=== PATIENT | female | born 1980 | race Two or more races ===

== ENCOUNTER 2016-07-24 20:18 | Emergency (ER) | payer OTHER ==
[~2016-07-24] VITALS: Ht 165.1 cm; Wt 175.5 kg
[2016-07-24] MEDS ORDERED: LORAZEPAM 1 MG TABLET. PO ONE (22:00)
[2016-07-24] MEDS ORDERED: IPRATRPIUM/ALBUTEROL 0.5/2.5MG 3 ML NEBU. NEB ONE (22:00)
[2016-07-24 22:29] VITALS: BP 158/74
[2016-07-24] MEDS ORDERED: PROAIR HFA8.5 GM INH (23:31)
[2016-07-24] MEDS ORDERED: LORA0.5T96 PO (23:31)
[2016-07-24] MEDS ORDERED: BENZ100C PO (23:31)
--- NOTE | 2016-07-24 23:32 | PHYS DOC ---
Past Medical History Past Medical History: Other Additional Past Medical Histor: BACK PAIN Past Surgical History: Other Additional Past Surgical Histo: BLOOD PATCH Alcohol Use: None Drug Use: None Adult General Chief Complaint Chief Complaint: ANXIETY/PANIC ATTACK HPI HPI 35-year-old female states she felt some mild numbness and feeling to her face and felt symptoms that are typical of her usual anxiety and panic attacks that she's had. She states she has a son at home that is giving her significant stress. Her son has history of ADHD and she is teary-eyed when she states she feels overwhelmed at home. She states she normally would be all to cope but that time for Tylenol home that she is used to. She has been previously prescribed Xanax for panic attacks. She additionally states she's had a cough that is productive for greenish type sputum. She feels she is wheezing but does not have an inhaler at home. She denies any significant shortness of breath. She said her saturating near 100% on room air in no significant distress. She denies any suicidal or homicidal thoughts. Review of Systems Review of Systems Constitutional: Denies fever or chills [] Eyes: Denies change in visual acuity, redness, or eye pain [] HENT: Denies nasal congestion or sore throat [] Respiratory: Denies cough or shortness of breath [] Cardiovascular: No additional information not addressed in HPI [] GI: Denies abdominal pain, nausea, vomiting, bloody stools or diarrhea [] : Denies dysuria or hematuria [] Musculoskeletal: Denies back pain or joint pain [] Integument: Denies rash or skin lesions [] Neurologic: Denies headache, focal weakness or sensory changes [] Endocrine: Denies polyuria or polydipsia [] Current Medications Current Medications Current Medications Medications (Trade) Dose Ordered Sig/Brian Start Time Stop Time Status Last Admin Dose Admin Albuterol/ Ipratropium (Duoneb) 3 ml 1X ONCE 07/24/16 22:00 07/24/16 22:01 DC 07/24/16 22:33 3 ML Lorazepam (Ativan) 0.5 mg 1X ONCE 07/24/16 22:00 07/24/16 22:01 DC 07/24/16 22:15 0.5 MG Allergies Allergies Allergies Coded Allergies Type Severity Reaction Last Updated Verified fluconazole Allergy Severe Anaphylaxis 11/08/13 No Physical Exam Physical Exam Constitutional: Well developed, well nourished, no acute distress, non-toxic appearance. [] HENT: Normocephalic, atraumatic, bilateral external ears normal, oropharynx moist, no oral exudates, nose normal. [] Eyes: PERRLA, EOMI, conjunctiva normal, no discharge. [] Neck: Normal range of motion, no tenderness, supple, no stridor. [] Cardiovascular:Heart rate regular rhythm, no murmur [] Lungs & Thorax: Expiratory wheezes bilaterally, no respiratory distress [] Abdomen: Bowel sounds normal, soft, no tenderness, no masses, no pulsatile masses. [] Skin: Warm, dry, no erythema, no rash. [] Back: No tenderness, no CVA tenderness. [] Extremities: No tenderness, no cyanosis, no clubbing, ROM intact, no edema. [] Neurologic: Alert and oriented X 3, normal motor function, normal sensory function, no focal deficits noted. [] Psychologic: Affect normal, judgement normal, mood anxious. [] Current Patient Data Vital Signs Vital Signs Date Time Temp Pulse Resp B/P Pulse Ox O2 Delivery O2 Flow Rate FiO2 07/24/16 22:33 98 Room Air 07/24/16 22:29 77 158/74 07/24/16 20:24 99.5 18 99.5 EKG EKG EKG as interpreted by me shows a sinus rhythm with rate of 70 bpm. This is a normal EKG. There are no signs of ischemia. Radiology/Procedures Radiology/Procedures [] Course & Med Decision Making Course & Med Decision Making Pertinent Labs and Imaging studies reviewed. (See chart for details) This 35-year-old female with ongoing anxiety was given a by mouth dose of Ativan and a DuoNeb treatment with significant relief of symptoms. I'll be providing her a course of bronchodilator therapy at home with a pro-air inhaler as well as Tessalon Perles for cough. I'll provide her a short course of Ativan. I discussed the need for her to follow closely with her primary care doctor for her ongoing anxiety type symptoms. I believe her cough to be related to bronchospasm and I told her to use her inhaler liberally every 4-6 hours until her cough resolves. I see no indication perform any laboratory workup or imaging at this time. Gton Disclaimer Gton Disclaimer This electronic medical record was generated, in whole or in part, using a voice recognition dictation system. Departure Departure Impression: Primary Impression: Anxiety Additional Impression: Bronchospasm Disposition: 01 HOME, SELF-CARE Admitting Physician: Other Condition: STABLE Referrals: NO PCP (PCP) Patient Instructions: Anxiety and Panic Attacks, [id number] Additional Instructions: Please follow up with your primary doctor in the next 2-3 days for your anxiety and cough. Use your inhaler as instructed. Take your anxiety medication as needed. Return to the ER if you develop any worsening of your symptoms. Scripts Benzonatate (Tessalon Perle)100 Mg [id number] Mg PO TID PRN COUGH #15 CAP Prov:SRAVANTHI LAY DO 07/24/16 Lorazepam (Ativan)0.5 Mg Tablet0.5 Mg PO BID PRN ANXIETY / AGITATION #8 TAB Prov:SRAVANTHI LAY DO 07/24/16 Albuterol Sulfate (Proair Hfa Inhaler)8.5 Gm Hfa.aer.ad1 Puff INH PRN Q6HRS PRN SHORTNESS OF BREATH #1 INHALER Ref 0 Prov:SRAVANTHI LAY DO 07/24/16 Problem Qualifiers SRAVANTHI LAY DO Jul 24, 2016 23:31
--- NOTE | 2016-07-24 23:38 | ACF ---
Admission Forms Criteria PSYCHIATRIC DISORDERS Clinical Indications for Inpatient Care (Place 'X' for any and all applicable criteria): Ongoing inpatient care may be needed for ANY ONE of the following(1)(2)(3)(4)(6) (7)(8): [ ]I. Danger to self or others not manageable at lower level of care. [ ]II. Grave disability (eg, inability to perform self care necessary at lower level of care) [ ]III. Agitation or inappropriate behavior interfering with care for primary condition (eg, attempting to discontinue lines or drains prematurely, unable to cooperate with respiratory care) [ ]IV. Severe disability or disorder indicated by ALL of the following: []a) Severe behavioral health disorder-related symptoms or condition indicated by ANY ONE of the following: [ ]i) Severe problem with cognition, memory, judgment, or impulse control [ ]ii) Severe clinical manifestations (eg, hallucinations, delusions, other acute psychotic symptoms, ismael, extreme agitation or anxiety) [ ]b) Patient management at lower level of care is not feasible until acute intervention or modification is initiated. Extended stay beyond goal length of stay for the primary condition may be indicated when ANY ONE of the following is present: (1)(2)(3)(4): [ ]a) Patient is a danger to self or others and not manageable at lower level of care. [ ]b) Behavior crisis management, including physical or chemical restraints, is required and is not available at a lower level of care. [ ]c) Behavioral symptoms (e.g., agitation, somnolence, inappropriate behavior) are present, and are not manageable at a lower level of care. [ ]d) Patient cannot understand follow-up treatment and crisis plan. [ ]e) Provider and supports are not sufficiently available at lower level of care. [ ]f) Patient cannot participate (e.g., verify absence of plan for harm) and is in needed of monitoring. The original [employer] content created by [employer] has been revised. The portions of the content which have been revised are identified through the use of italic text or in bold, and [facility] [employer] has neither reviewed nor approved the modified material. All other unmodified content is copyright [employer] [facility]. Please see references footnoted in the original [employer] [facility] edition 2016 HENRRY SERRANO Jul 24, 2016 23:38
--- NOTE | 2016-07-25 06:52 | EKG ---
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
== END 2016-07-24 23:47 | disposition home or self-care (01) ==
LOC: ER 20:18
DX: F41.9 Anxiety disorder, unspecified (principal); J98.01 Acute bronchospasm; F41.0 Panic disorder [episodic paroxysmal anxiety]; R20.0 Anesthesia of skin
CPT/HCPCS: 93005; 94250; 94640; 99284; J7620

== ENCOUNTER 2016-11-13 15:08 | Emergency (ER) | payer OTHER ==
[~2016-11-13 15:08] MED LIST: BENZ100C PO; LORA0.5T96 PO; PROAIR HFA8.5 GM INH
== END 2016-11-13 16:04 | disposition left against medical advice (07) ==
LOC: ER 15:08
DX: M54.9 Dorsalgia, unspecified (principal); Z53.21 Procedure and treatment not carried out due to patient leaving prior to being seen by health care provider

== ENCOUNTER 2017-05-16 12:01 | Emergency (ER) | payer OTHER | END 2017-05-16 13:46 | disposition home or self-care (01) | LOC: ER 13:46 | DX: S83.91XA Sprain of unspecified site of right knee, initial encounter (principal); S93.601A Unspecified sprain of right foot, initial encounter; S30.0XXA Contusion of lower back and pelvis, initial encounter; M17.11 Unilateral primary osteoarthritis, right knee; M47.816 Spondylosis without myelopathy or radiculopathy, lumbar region; W10.9XXA Fall (on) (from) unspecified stairs and steps, initial encounter; Z88.8 Allergy status to other drugs, medicaments and biological substances; Y93.89 Activity, other specified; Y92.89 Other specified places as the place of occurrence of the external cause; Y99.8 Other external cause status | CPT/HCPCS: 72100; 73564; 73630; 99284 ==

== ENCOUNTER 2018-01-04 22:17 | Emergency (ER) | payer SELFPAY ==
[~2018-01-04] VITALS: Ht 165.1 cm; Wt 181.4 kg
[~2018-01-04 22:17] MED LIST changes: +CYCL10TA2 PO; +DICL50TA4 PO
[2018-01-04 22:55] VITALS: BP 146/82
[2018-01-04 23:48] LABS: INFLUENZA A PATIENT NEGATIVE (NEGATIVE); INFLUENZA B PATIENT NEGATIVE (NEGATIVE)
[2018-01-05] MEDS ORDERED: DEXAMETHASONE SOD PHOS 20 MG/5 ML VIAL. PO ONE
[2018-01-05] MEDS ORDERED: ALBUTEROL SULFATE 2.5 MG/3 ML NEBU. NEB ONE (00:30)
[2018-01-05] MEDS ORDERED: BENZ100C PO (01:12)
[2018-01-05] MEDS ORDERED: AMOX1TAB61 PO (01:12)
[2018-01-05] MEDS ORDERED: PROAIR HFA8.5 GM INH (01:12)
--- NOTE | 2018-01-05 01:13 | PHYS DOC ---
Past Medical History Past Medical History: Other Additional Past Medical Histor: BACK PAIN Past Surgical History: Other Additional Past Surgical Histo: BLOOD PATCH Alcohol Use: None Drug Use: None Adult General Chief Complaint Chief Complaint: SORE THROAT HPI HPI Patient is a 37 year old male who presents to the emergency room with complaints of a sore throat, nasal congestion, productive cough with green sputum, wheezing, shortness of breath, fatigue, and body aches for the last 3 days. She denies any nausea, vomiting, diarrhea, abdominal pain, dysuria, or fever. States that her son has also been sick recently. Patient states that her last period began on 31 December and denies any chance of . Review of Systems Review of Systems Constitutional: Denies fever or chills [] Eyes: Denies change in visual acuity, redness, or eye pain [] HENT: reports nasal congestion and sore throat [] Respiratory: reports wheezing, productive cough with dark green sputum, and shortness of breath [] Cardiovascular: Denies chest pain GI: Denies abdominal pain, nausea, vomiting, or diarrhea [] Musculoskeletal: Denies back pain or joint pain [] Integument: Denies rash or skin lesions [] Neurologic: Denies headache, focal weakness or sensory changes [] All other systems were reviewed and found to be within normal limits, except as documented in this note. Current Medications Current Medications Current Medications Medications (Trade) Dose Ordered Sig/Brian Start Time Stop Time Status Last Admin Dose Admin Albuterol Sulfate (Ventolin Neb Soln) 2.5 mg 1X ONCE 01/05/18 00:30 01/05/18 00:31 DC 01/05/18 00:35 2.5 MG Dexamethasone Sodium Phosphate (Decadron) 10 mg 1X ONCE 01/05/18 00:00 01/05/18 00:01 DC 01/05/18 00:04 10 MG Allergies Allergies Allergies Coded Allergies Type Severity Reaction Last Updated Verified fluconazole Allergy Severe Anaphylaxis 11/08/13 No Physical Exam Physical Exam Constitutional: Well developed, well nourished, no acute distress, non-toxic appearance, obese [] HENT: Normocephalic, atraumatic, bilateral external ears normal, oropharynx moist, no oral exudates, nose normal. [] Eyes: PERRLA, conjunctiva normal, no discharge. [] Neck: Normal range of motion, no tenderness, supple, no stridor. [] Cardiovascular:Heart rate regular rhythm, no murmur [] Lungs & Thorax: Bilateral breath sounds coarse with scattered wheezes bilat Skin: Warm, dry, no erythema, no rash. [] Extremities: No cyanosis, ROM intact, no edema. [] Neurologic: Alert and oriented X 3, normal motor function, normal sensory function, no focal deficits noted. [] Psychologic: Affect normal, judgement normal, mood normal. [] Current Patient Data Vital Signs Vital Signs Date Time Temp Pulse Resp B/P (MAP) Pulse Ox O2 Delivery O2 Flow Rate FiO2 01/05/18 00:37 98 Room Air 01/04/18 22:55 98.5 82 20 146/82 (103) 98.5 Lab Values Laboratory Tests Test 01/04/18 23:20 Influenza Type A Antigen Negative (NEGATIVE) Influenza Type B Antigen Negative (NEGATIVE) EKG EKG [] Radiology/Procedures Radiology/Procedures CXR neg read by Dr Panda[] Course & Med Decision Making Course & Med Decision Making Pertinent Labs and Imaging studies reviewed. (See chart for details) [] Dragon Disclaimer Dragon Disclaimer This electronic medical record was generated, in whole or in part, using a voice recognition dictation system. Departure Departure Impression: Primary Impression: URI (upper respiratory infection) Additional Impression: Bronchitis Disposition: 01 HOME, SELF-CARE Condition: STABLE Referrals: UNKNOWN PCP NAME (PCP) Patient Instructions: Acute Bronchitis, [id number], Upper Respiratory Infection, Adult, Utrc-hz-Eagh Additional Instructions: Fill prescription(s) and use as directed. Cool mist humidifier in room at bedtime. Tylenol or ibuprofen prn pain/fever. Increase clear fluids. Avoid triggers such as smoke, fragrance, dust, and pollen. Follow-up with your primary care doctor next week, Return to the ER if your symptoms worsen. Scripts Albuterol Sulfate (PROAIR HFA INHALER) 8.5 Gm Hfa.aer.ad 1-2 PUFF INH PRN Q6HRS PRN for SHORTNESS OF BREATH, #1 INHALER 0 Refills Prov: KATYA COOPER JOURNEYMAN PRESS OPERATOR 01/05/18 Benzonatate (TESSALON PERLE) 100 Mg Capsule 1 CAP PO TID, #21 CAP Prov: KATYA COOPER JOURNEYMAN PRESS OPERATOR 01/05/18 Amoxicillin/Potassium Clav (AUGMENTIN 875-125 TABLET) 1 Each Tablet 1 TAB PO BID, #14 TAB Prov: KATYA COOPER APRN 01/05/18 Attending Signature Attending Signature I have reviewed the PA/INSURANCE MANAGER's note and plan of care. I was available for consultation as needed during the patient's visit in the emergency department. I agree with the clinical impression, plan, and disposition. Problem Qualifiers Primary Impression: URI (upper respiratory infection) URI type: unspecified URI Qualified Codes: J06.9 - Acute upper respiratory infection, unspecified KATYA COOPER APRN Jan 05, 2018 01:13 DARREN PANDA DO Jan 05, 2018 04:38
--- NOTE | 2018-01-05 07:13 | RAD ---
EXAM: Chest, 2 views. HISTORY: Cough. COMPARISON: None. FINDINGS: Frontal and lateral views of the chest are obtained. There is no infiltrate, pleural effusion or pneumothorax. The heart is normal in size. IMPRESSION: No acute pulmonary finding. Electronically signed by: Reba Santiago MD (01/05/2018 7:10 AM) [facility]
== END 2018-01-05 01:19 | disposition home or self-care (01) ==
LOC: ER 22:17
DX: J40 Bronchitis, not specified as acute or chronic (principal); J06.9 Acute upper respiratory infection, unspecified; Z88.8 Allergy status to other drugs, medicaments and biological substances
CPT/HCPCS: 71046; 87070; 87804; 87880; 94640; 99285; J1100; J7613

== ENCOUNTER 2018-05-21 02:47 | Emergency (ER) | payer OTHER ==
[~2018-05-21] VITALS: Ht 162.6 cm; Wt 181.4 kg
[~2018-05-21 02:47] MED LIST changes: +ALBU2.5V8 INH; +AMOX1TAB61 PO; -PROAIR HFA8.5 GM INH
[2018-05-21 02:55] VITALS: BP 155/85
[2018-05-21] MEDS ORDERED: KETOROLAC 60 MG/2 ML VIAL. IM ONE (03:15)
[2018-05-21] MEDS ORDERED: ORPH100T PO (03:25)
[2018-05-21] MEDS ORDERED: DICL50TA4 PO (03:25)
--- NOTE | 2018-05-21 03:26 | PHYS DOC ---
Past Medical History Past Medical History: Other Additional Past Medical Histor: BACK PAIN Past Surgical History: Other Additional Past Surgical Histo: BLOOD PATCH Alcohol Use: None Drug Use: None Adult General Chief Complaint Chief Complaint: BACK PAIN - NO INJURY HPI HPI Patient is a 37-year-old female who presents with complaint of exacerbation of lower back pain. Patient states that she has a history of chronic back pain. She states that recently her autistic son stayed home from school due to an intestinal infection and she was having to lift him a lot. She states that since that time she has had pain in her mid to lower back region. She states the pain radiates up her back into her shoulder blade. She denies any loss of bowel or bladder control. She denies any urinary discomfort. She rates the pain at a 7 out of 10. Review of Systems Review of Systems Constitutional: Denies fever or chills [] Respiratory: Denies cough or shortness of breath [] Cardiovascular: No additional information not addressed in HPI [] : Denies dysuria or hematuria [] Musculoskeletal: Complains of lower back pain [] Integument: Denies rash or skin lesions [] Neurologic: Denies headache, focal weakness or sensory changes [] Current Medications Current Medications Current Medications Medications (Trade) Dose Ordered Sig/Brian Start Time Stop Time Status Last Admin Dose Admin Ketorolac Tromethamine (Toradol Im) 60 mg 1X ONCE 05/21/18 03:15 05/21/18 03:16 DC Allergies Allergies Allergies Coded Allergies Type Severity Reaction Last Updated Verified fluconazole Allergy Severe Anaphylaxis 11/08/13 No Physical Exam Physical Exam Constitutional: Well developed, well nourished, no acute distress, non-toxic appearance. [] Neck: Normal range of motion, no tenderness, supple, no stridor. [] Cardiovascular: Regular rate and rhythm [] Lungs & Thorax: Bilateral breath sounds clear to auscultation [] Back: There is tenderness to palpation in the left lower thoracic and thoraco lumbar junction without palpable spasm. [] Neurologic: Alert and oriented X 3. [] EKG EKG [] Radiology/Procedures Radiology/Procedures [] Course & Med Decision Making Course & Med Decision Making Pertinent Labs and Imaging studies reviewed. (See chart for details) [] Dragon Disclaimer Dragon Disclaimer This electronic medical record was generated, in whole or in part, using a voice recognition dictation system. Departure Departure Impression: Primary Impression: Chronic back pain Disposition: HOME, SELF-CARE Condition: STABLE Referrals: UNKNOWN PCP NAME (PCP) Patient Instructions: Back Pain, Adult, Chronic Back Pain Scripts Diclofenac Sodium (DICLOFENAC SODIUM) 50 Mg Tablet.dr 1 TAB PO BID PRN for PAIN, #20 TAB Prov: MARCO HAMILTON Jr. DO 05/21/18 Orphenadrine Citrate (ORPHENADRINE CITRATE) 100 Mg Tablet.er 1 TAB PO BID PRN for MUSCLE SPASMS, #14 TAB Prov: MARCO HAMILTON Jr. DO 05/21/18 Problem Qualifiers Primary Impression: Chronic back pain Back pain location: back pain in unspecified location Back pain laterality: left Qualified Codes: M54.9 - Dorsalgia, unspecified; G89.29 - Other chronic pain MARCO HAMILTON Jr. DO May 21, 2018 03:26
== END 2018-05-21 04:00 | disposition home or self-care (01) ==
LOC: ER 02:47
DX: G89.29 Other chronic pain (principal); M54.5 Low back pain; Z88.8 Allergy status to other drugs, medicaments and biological substances
CPT/HCPCS: 96372; 99283; J1885

== ENCOUNTER 2018-06-03 22:11 | Emergency (ER) | payer OTHER ==
[~2018-06-03] VITALS: Ht 162.6 cm; Wt 188.2 kg
[~2018-06-03 22:11] MED LIST changes: +ORPH100T PO
[2018-06-03] MEDS ORDERED: IV NORMAL SALINE 1000ML BAG 1,000 ML IV ONE (22:30)
[2018-06-03] MEDS ORDERED: ONDANSETRON PF 4 MG/2 ML VIAL. IV ONE (22:30)
[2018-06-03] MEDS ORDERED: MORPHINE SULFATE 4 MG/ML VIAL. IV ONE (22:30)
[2018-06-03] MEDS ORDERED: IPRATRPIUM/ALBUTEROL 0.5/2.5MG 3 ML NEBU. NEB ONE (23:00)
--- NOTE | 2018-06-03 23:03 | RAD ---
AP portable chest radiograph 06/03/2018 Clinical History: Shortness of breath. An AP erect portable digital radiograph of the chest was obtained. Comparison study is dated 01/05/2018. The cardiac and mediastinal silhouettes are within normal limits in size and configuration. No acute pulmonary infiltrate is seen. No pleural effusion or pneumothorax is noted. The osseous structures are grossly intact. Impression: No acute abnormality is seen. Electronically signed by: Ismael Mcnamara MD (06/03/2018 11:00 PM) [facility]
[2018-06-03 23:21] LABS: BASE EXCESS ABG -3 mmol/L (-3-3); HCO3 ABG 22 mmol/L (21-28); PCO2 ABG 36 mmHg (35-46); PO2 ABG 70 mmHg (75-108); SAT O2 ABG 94 % (92-99)
[2018-06-03 23:22] LABS: FIO2 ABG 21
[2018-06-03 23:24] LABS: BASO % 1 % (0-3); EOS % 1 % (0-3); HEMATOCRIT 43.4 % (36.0-47.0); HEMOGLOBIN 14.6 g/dL (12.0-15.5); LYMPH # 1.4 x10^3/uL (1.0-4.8); LYMPH % 32 % (24-48); MEAN CORPUSCULAR HEMOGLOBIN 28 pg (25-35); MEAN CORPUSCULAR HGB CONC 34 g/dL (31-37); MEAN CORPUSCULAR VOLUME 84 fL (79-100); MONO # 0.6 x10^3/uL (0.0-1.1); MONO % 13 % (0-9); NEUT # 2.4 x10^3uL (1.8-7.7); NEUT % 54 % (31-73); PLATELET COUNT 207 x10^3/uL (140-400); RED CELL DISTRIBUTION WIDTH 14.4 % (11.5-14.5); WHITE BLOOD COUNT 4.5 x10^3/uL (4.0-11.0)
[2018-06-04 00:02] LABS: CALCIUM 8.6 mg/dL (8.5-10.1); CREATININE 0.8 mg/dL (0.6-1.0); GFR 79.9; POTASSIUM 3.3 mmol/L (3.5-5.1)
[2018-06-04 00:07] LABS: ALBUMIN 2.8 g/dL (3.4-5.0); ALBUMIN/GLOBULIN RATIO 0.7 (1.0-1.7); TOTAL BILIRUBIN 0.3 mg/dL (0.2-1.0); TOTAL PROTEIN 7.1 g/dL (6.4-8.2)
[2018-06-04 00:20] LABS: PREG TEST PT QUAL NEGATIVE (NEG)
[2018-06-04 00:23] LABS: INFLUENZA A PATIENT NEGATIVE (NEGATIVE); INFLUENZA B PATIENT NEGATIVE (NEGATIVE)
[2018-06-04 00:40] LABS: BILIRUBIN,URINE SMALL (NEG); CLARITY,URINE CLOUDY; COLOR,URINE AMBER; NITRITE,URINE NEGATIVE (NEG); PROTEIN,URINE 30 mg/dL (NEG-TRACE)
[2018-06-04] MEDS ORDERED: IV NORMAL SALINE 1000ML BAG 1,000 ML IV ONE (01:15)
[2018-06-04 01:20] LABS: BACTERIA,URINE MODERATE /HPF (0-FEW); HYALINE CASTS, URINE MODERATE /HPF; RBC,URINE OCC /HPF (0-2); SQUAMOUS EPITHELIAL CELL,UR MANY /LPF
[2018-06-04] MEDS ORDERED: MORPHINE SULFATE 4 MG/ML VIAL. IV ONE (02:00)
[2018-06-04] MEDS ORDERED: CEPH-264 PO (02:18)
[2018-06-04] MEDS ORDERED: CODE10LI PO (02:18)
[2018-06-04] MEDS ORDERED: cefTRIAXone IV Push 1 GM VIAL. IVP ONE (02:30)
[2018-06-04 02:55] VITALS: BP 109/58
--- NOTE | 2018-06-04 06:37 | EKG ---
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
--- NOTE | 2018-06-07 21:32 | PHYS DOC ---
Past Medical History Past Medical History: Asthma, Other Additional Past Medical Histor: BACK PAIN, MORBID OBESITY Past Surgical History: Other Additional Past Surgical Histo: BLOOD PATCH Alcohol Use: None Drug Use: None Adult General Chief Complaint Chief Complaint: SHORTNESS OF BREATH HPI HPI Patient is a 37 year old female presents with persistent cough, diarrhea, sore throat and occasional shortness of breath. History of asthma. Fever chills, wheezing. Also reports urinary frequency urgency. No abdominal pain, no vomiting , flank pain history of kidney stone.[] Review of Systems Review of Systems Review symptoms as per history of present illness. All other review symptoms are negative. All other systems were reviewed and found to be within normal limits, except as documented in this note. Current Medications Current Medications Current Medications Medications (Trade) Dose Ordered Sig/Brian Start Time Stop Time Status Last Admin Dose Admin Albuterol/ Ipratropium (Duoneb) 3 ml 1X ONCE 06/03/18 23:00 06/03/18 23:01 DC 06/03/18 23:08 3 ML Ceftriaxone Sodium (Rocephin) 1 gm 1X ONCE 06/04/18 02:30 06/04/18 02:31 DC 06/04/18 03:12 1 GM Morphine Sulfate (Morphine Sulfate) 2 mg 1X ONCE 06/04/18 02:00 06/04/18 02:01 DC 06/04/18 01:50 2 MG Ondansetron HCl (Zofran) 4 mg 1X ONCE 06/03/18 22:30 06/03/18 22:32 DC 06/03/18 23:25 4 MG Sodium Chloride 1,000 ml @ 1,000 mls/hr 1X ONCE 06/04/18 01:15 06/04/18 02:14 DC 06/04/18 01:50 1,000 MLS/HR Allergies Allergies Allergies Coded Allergies Type Severity Reaction Last Updated Verified fluconazole Allergy Severe Anaphylaxis 11/08/13 No Physical Exam Physical Exam Constitutional: Well developed, well nourished, no acute distress, non-toxic appearance. [] HENT: Normocephalic, atraumatic, bilateral external ears normal, oropharynx moist, no oral exudates, nose normal. [] Eyes: PERRLA, EOMI, conjunctiva normal, no discharge. [] Neck: Normal range of motion, no tenderness, supple, no stridor. [] Cardiovascular:Heart rate regular rhythm, no murmur [] Lungs & Thorax: Bilateral breath sounds clear to auscultation [] Abdomen: Bowel sounds normal, soft, no tenderness, no masses, no pulsatile masses. [] Skin: Warm, dry, no erythema, no rash. [] Back: No tenderness, no CVA tenderness. [] Extremities: No tenderness, no cyanosis, no clubbing, ROM intact, no edema. [] Neurologic: Alert and oriented X 3, normal motor function, normal sensory function, no focal deficits noted. [] Psychologic: Affect normal, judgement normal, mood normal. [] Current Patient Data Vital Signs Vital Signs Date Time Temp Pulse Resp B/P (MAP) Pulse Ox O2 Delivery O2 Flow Rate FiO2 06/04/18 02:55 68 109/58 (75) 98 Room Air 06/04/18 01:50 22 06/03/18 22:15 99.6 99.6 Lab Values Laboratory Tests Test 06/03/18 23:07 06/03/18 23:10 06/03/18 23:24 06/03/18 23:34 O2 Saturation 94 % (92-99) Arterial Blood pH 7.40 (7.35-7.45) Arterial Blood pCO2 at Patient Temp 36 mmHg (35-46) Arterial Blood pO2 at Patient Temp 70 mmHg (75-108) L Arterial Blood HCO3 22 mmol/L (21-28) Arterial Blood Base Excess -3 mmol/L (-3-3) FiO2 21 White Blood Count 4.5 x10^3/uL (4.0-11.0) Red Blood Count 5.20 x10^6/uL (3.50-5.40) Hemoglobin 14.6 g/dL (12.0-15.5) Hematocrit 43.4 % (36.0-47.0) Mean Corpuscular Volume 84 fL (79-100) Mean Corpuscular Hemoglobin 28 pg (25-35) Mean Corpuscular Hemoglobin Concent 34 g/dL (31-37) Red Cell Distribution Width 14.4 % (11.5-14.5) Platelet Count 207 x10^3/uL (140-400) Neutrophils (%) (Auto) 54 % (31-73) Lymphocytes (%) (Auto) 32 % (24-48) Monocytes (%) (Auto) 13 % (0-9) H Eosinophils (%) (Auto) 1 % (0-3) Basophils (%) (Auto) 1 % (0-3) Neutrophils # (Auto) 2.4 x10^3uL (1.8-7.7) Lymphocytes # (Auto) 1.4 x10^3/uL (1.0-4.8) Monocytes # (Auto) 0.6 x10^3/uL (0.0-1.1) Eosinophils # (Auto) 0.0 x10^3/uL (0.0-0.7) Basophils # (Auto) 0.0 x10^3/uL (0.0-0.2) Lactic Acid Level 1.2 mmol/L (0.4-2.0) POC Troponin I 0.00 ng/ml (<0.08) Influenza Type A Antigen Negative (NEGATIVE) Influenza Type B Antigen Negative (NEGATIVE) Test 06/03/18 23:40 06/04/18 00:15 06/04/18 00:22 Sodium Level 141 mmol/L (136-145) Potassium Level 3.3 mmol/L (3.5-5.1) L Chloride Level 104 mmol/L (98-107) Carbon Dioxide Level 25 mmol/L (21-32) Anion Gap 12 (6-14) Blood Urea Nitrogen 13 mg/dL (7-20) Creatinine 0.8 mg/dL (0.6-1.0) Estimated GFR (Cockcroft-Gault) 79.9 BUN/Creatinine Ratio 16 (6-20) Glucose Level 120 mg/dL (70-99) H Calcium Level 8.6 mg/dL (8.5-10.1) Total Bilirubin 0.3 mg/dL (0.2-1.0) Aspartate Amino Transferase (AST) 24 U/L (15-37) Alanine Aminotransferase (ALT) 31 U/L (14-59) Alkaline Phosphatase 83 U/L (46-116) NC-Ejv-I-Type Natriuretic Peptide 37 pg/mL (0-124) Total Protein 7.1 g/dL (6.4-8.2) Albumin 2.8 g/dL (3.4-5.0) L Albumin/Globulin Ratio 0.7 (1.0-1.7) L Serum Test, Qualitative Negative (NEG) Urine Collection Type Unknown Urine Color Elle Urine Clarity Cloudy Urine pH 6.0 Urine Specific [place] >=1.030 Urine Protein 30 mg/dL (NEG-TRACE) Urine Glucose (UA) Negative mg/dL (NEG) Urine Ketones (Stick) Trace mg/dL (NEG) Urine Blood Large (NEG) Urine Nitrite Negative (NEG) Urine Bilirubin Small (NEG) Urine Urobilinogen Dipstick 1.0 mg/dL (0.2 mg/dL) Urine Leukocyte Esterase Small (NEG) Urine RBC Occ /HPF (0-2) Urine WBC 1-4 /HPF (0-4) Urine Squamous Epithelial Cells Many /LPF Urine Bacteria Moderate /HPF (0-FEW) Urine Hyaline Casts Moderate /HPF POC Urine HCG, Qualitative Hcg negative (Negative) Laboratory Tests 06/03/18 23:10 Laboratory Tests 06/03/18 23:40 Microbiology 06/04/18 Urine Culture - Final, Complete 06/04/18 Urine Culture Result 1 ([place]) - Final, Complete EKG EKG [] Radiology/Procedures Radiology/Procedures [] Course & Med Decision Making Course & Med Decision Making Pertinent Labs and Imaging studies reviewed. (See chart for details) [Symptoms significantly improved with treatment.] Dragon Disclaimer Dragon Disclaimer This electronic medical record was generated, in whole or in part, using a voice recognition dictation system. Departure Departure Impression: Primary Impression: Bronchitis Additional Impression: Urinary tract infection Disposition: 01 HOME, SELF-CARE Condition: GOOD Patient Instructions: Bronchitis, Urql-of-Jghn, Urinary Tract Infection, Easy- to-Read Additional Instructions: Please increase fluids and take newly prescribed medications as directed. Follow -up with your PCP in 2-3 days for reevaluation. Return to the ED if new or worsening symptoms. Scripts Codeine Phosphate/Guaifenesin (Guaifen-Codeine 200-20 mg/10Ml) 10 Ml Liquid 10 ML PO Q8HRS, #120 LIQUID Prov: GLENDY ALEXANDER DO 06/04/18 Cephalexin (KEFLEX) 500 Mg Capsule 1 CAP PO TID, #21 CAP Prov: GLENDY ALEXANDER DO 06/04/18 Problem Qualifiers GLENDY ALEXANDER DO Jun 07, 2018 21:32
== END 2018-06-04 03:18 | disposition home or self-care (01) ==
LOC: ER 22:11
DX: J40 Bronchitis, not specified as acute or chronic (principal); N39.0 Urinary tract infection, site not specified; E66.01 Morbid (severe) obesity due to excess calories; Z68.45 Body mass index [BMI] 70 or greater, adult
CPT/HCPCS: 36415; 36600; 71045; 80053; 81001; 81025; 82805; 83605; 83880; 84484; 84703; 85025; 87086; 87804; 93005; 94640; 96361; 96374; 96375; 96376; 99284; J0696; J2270; J2405; J7030; J7620; 99283

== ENCOUNTER 2018-12-25 11:56 | Emergency (ER) | payer MEDICAID, OTHER ==
[~2018-12-25] VITALS: Ht 165.1 cm; Wt 190.5 kg
[~2018-12-25 11:56] MED LIST changes: +CEPH-264 PO; +CODE10LI PO
--- NOTE | 2018-12-25 13:41 | PHYS DOC ---
Past Medical History Past Medical History: Asthma, Other Additional Past Medical Histor: BACK PAIN, MORBID OBESITY Past Surgical History: Other Additional Past Surgical Histo: BLOOD PATCH Alcohol Use: None Drug Use: None Adult General Chief Complaint Chief Complaint: DIZZY/LIGHT HEADED [facility] HPI Patient is a 38 year old female who presents with complaining of dizziness. Patient complaining of intermittent episodes of dizziness for the last 2 weeks that usually happen after eating for the last for several hours. Patient states the dizziness is happening with sitting and standing position and associated with headache and sometimes nausea without focal neuro deficit. She does not have history of hypertension but is last days her blood pressure was 160s and 170s and she had headache and nausea and decided to come to emergency room because of elevation of blood pressure. Patient denies any medical problem or taking any medication. Review of Systems Review of Systems Constitutional: Denies fever or chills [] Eyes: Denies change in visual acuity, redness, or eye pain [] HENT: Denies nasal congestion or sore throat [] Respiratory: Denies cough or shortness of breath [] Cardiovascular: No additional information not addressed in HPI [] GI: Denies abdominal pain, vomiting, bloody stools or diarrhea [] : Denies dysuria or hematuria [] Musculoskeletal: Denies back pain or joint pain [] Integument: Denies rash or skin lesions [] Neurologic: Reports dizziness and headache, denies focal weakness or sensory changes [] Endocrine: Denies polyuria or polydipsia [] All other systems were reviewed and found to be within normal limits, except as documented in this note. Allergies Allergies Allergies Coded Allergies Type Severity Reaction Last Updated Verified fluconazole Allergy Severe Anaphylaxis 11/08/13 No Physical Exam Physical Exam Constitutional: Well developed, well nourished, mild distress, non-toxic appearance, morbidly obese. [] HENT: Normocephalic, atraumatic. Eyes: PERRLA, EOMI, conjunctiva normal, no discharge. [] Neck: Normal range of motion, no tenderness, supple, no stridor. [] Cardiovascular:Heart rate regular rhythm, no murmur [] Lungs & Thorax: Bilateral breath sounds clear to auscultation [] Abdomen: Bowel sounds normal, soft, no tenderness, no masses, no pulsatile masses. [] Skin: Warm, dry, no erythema, no rash. [] Back: No tenderness, no CVA tenderness. [] Extremities: No tenderness, no cyanosis, no clubbing, ROM intact, no edema. [] Neurologic: Alert and oriented X 3, no focal deficits noted. [] Psychologic: Affect anxious, judgement normal, mood normal. [] Current Patient Data Vital Signs Vital Signs Date Time Temp Pulse Resp B/P (MAP) Pulse Ox O2 Delivery O2 Flow Rate FiO2 12/25/18 13:15 97.5 65 18 144/68 (93) 100 Room Air 97.5 Lab Values Laboratory Tests Test 12/25/18 13:15 12/25/18 13:35 12/25/18 13:58 12/25/18 14:01 Glucose (Fingerstick) 117 mg/dL (70-99) H White Blood Count 7.0 x10^3/uL (4.0-11.0) Red Blood Count 4.71 x10^6/uL (3.50-5.40) Hemoglobin 13.4 g/dL (12.0-15.5) Hematocrit 40.1 % (36.0-47.0) Mean Corpuscular Volume 85 fL (79-100) Mean Corpuscular Hemoglobin 29 pg (25-35) Mean Corpuscular Hemoglobin Concent 34 g/dL (31-37) Red Cell Distribution Width 14.2 % (11.5-14.5) Platelet Count 248 x10^3/uL (140-400) Neutrophils (%) (Auto) 63 % (31-73) Lymphocytes (%) (Auto) 27 % (24-48) Monocytes (%) (Auto) 8 % (0-9) Eosinophils (%) (Auto) 1 % (0-3) Basophils (%) (Auto) 1 % (0-3) Neutrophils # (Auto) 4.4 x10^3/uL (1.8-7.7) Lymphocytes # (Auto) 1.9 x10^3/uL (1.0-4.8) Monocytes # (Auto) 0.6 x10^3/uL (0.0-1.1) Eosinophils # (Auto) 0.1 x10^3/uL (0.0-0.7) Basophils # (Auto) 0.1 x10^3/uL (0.0-0.2) Prothrombin Time 12.9 SEC (11.7-14.0) Prothrombin Time INR 1.0 (0.8-1.1) D-Dimer (Lillian) 0.66 ug/mlFEU (0.00-0.50) H Sodium Level 142 mmol/L (136-145) Potassium Level 4.1 mmol/L (3.5-5.1) Chloride Level 107 mmol/L (98-107) Carbon Dioxide Level 27 mmol/L (21-32) Anion Gap 8 (6-14) Blood Urea Nitrogen 14 mg/dL (7-20) Creatinine 0.9 mg/dL (0.6-1.0) Estimated GFR (Cockcroft-Gault) 69.3 BUN/Creatinine Ratio 16 (6-20) Glucose Level 111 mg/dL (70-99) H Calcium Level 8.8 mg/dL (8.5-10.1) Magnesium Level 1.9 mg/dL (1.8-2.4) Total Bilirubin 0.2 mg/dL (0.2-1.0) Aspartate Amino Transferase (AST) 16 U/L (15-37) Alanine Aminotransferase (ALT) 17 U/L (14-59) Alkaline Phosphatase 81 U/L (46-116) Creatine Kinase 174 U/L (26-192) Troponin I Quantitative < 0.017 ng/mL (0.000-0.055) CT-Zyj-D-Type Natriuretic Peptide 109 pg/mL (0-124) Total Protein 6.8 g/dL (6.4-8.2) Albumin 2.9 g/dL (3.4-5.0) L Albumin/Globulin Ratio 0.7 (1.0-1.7) L Lipase 138 U/L (73-393) Urine Collection Type Unknown Urine Color Yellow Urine Clarity Clear Urine pH 6.0 Urine Specific [place] 1.025 Urine Protein Negative mg/dL (NEG-TRACE) Urine Glucose (UA) Negative mg/dL (NEG) Urine Ketones (Stick) Negative mg/dL (NEG) Urine Blood Small (NEG) Urine Nitrite Negative (NEG) Urine Bilirubin Negative (NEG) Urine Urobilinogen Dipstick 0.2 mg/dL (0.2 mg/dL) Urine Leukocyte Esterase Negative (NEG) Urine RBC 3-5 /HPF (0-2) Urine WBC Rare /HPF (0-4) Urine Squamous Epithelial Cells Few /LPF Urine Bacteria Few /HPF (0-FEW) Urine Mucus Slight /LPF Urine Opiates Screen Neg (NEG) Urine Methadone Screen Neg (NEG) Urine Barbiturates Neg (NEG) Urine Phencyclidine Screen Neg (NEG) Urine Amphetamine/Methamphetamine Neg (NEG) Urine Benzodiazepines Screen Neg (NEG) Urine Cocaine Screen Neg (NEG) Urine Cannabinoids Screen Pos (NEG) Urine Ethyl Alcohol Neg (NEG) POC Urine HCG, Qualitative Hcg negative (Negative) Laboratory Tests 12/25/18 13:35 Laboratory Tests 12/25/18 13:35 EKG EKG EKG interpreted by me. EKG at 1312 showed normal sinus rhythm at rate of 77, normal MT and QT intervals, no acute ST and T-wave elevation.[] Radiology/Procedures Radiology/Procedures [][facility] [address] [place] [address] IMAGING REPORT Signed PATIENT: KIMBER BALDWIN ACCOUNT: [id number] : 1980 LOCATION: ER AGE: 38 SEX: F EXAM STATUS: REG ER ORD. PHYSICIAN: MAYLIN SULLIVAN MD REASON: nausea after eating PROCEDURE: ABDOMEN LTD ABDOMEN LTD History: Nausea. Comparison: None. Technique: Transabdominal ultrasound images are obtained of the right upper quadrant. Findings: Visualized pancreas is not well seen due to overlying bowel gas. Liver is increased in echogenicity. Right hepatic lobe measures 18 cm. Portal flow is hepatopedal. Gallbladder not well seen due to overlying bowel gas and patient body habitus. Difficult evaluation of the gallbladder may be due to contracted state or wall echo shadow sign. Common bile duct caliber is normal measuring 8.9 mm in diameter. The right kidney measures 10.1 x 6.5 x 5.3 cm in length and is without evidence of obstruction or stone. IVC is not well seen due to overlying bowel gas. IMPRESSION: 1. Evaluation of the gallbladder is degraded and findings may relate to wall echo shadow sign due to cholelithiasis versus contracted gallbladder. Further evaluation with MRI/MRCP or HIDA scan can better evaluate. 2. Mildly dilated common bile duct. 3. Hepatomegaly with steatosis. Electronically signed by: Jas Ibrahim DO (12/25/2018 2:42 PM) [id number] DICTATED and SIGNED BY: JAS IBRAHIM DO DATE: 12/25/[address] [address] IMAGING REPORT Signed PATIENT: KIMBER BALDWIN ACCOUNT: [id number] : 1980 LOCATION: ER AGE: 38 SEX: F EXAM STATUS: REG ER ORD. PHYSICIAN: MAYLIN SULLIVAN MD REASON: dizziness PROCEDURE: PORTABLE CHEST 1V EXAM: CHEST 1 VIEW History: Dizziness COMPARISON: 06/03/2018 TECHNIQUE: Single portable radiograph of the chest FINDINGS: The cardiac silhouette is unremarkable. The lungs are clear bilaterally. The costophrenic sulci are clear and well demarcated. . IMPRESSION: No radiographic evidence of an acute cardiopulmonary process. Electronically signed by: Mark Edmonds MD (12/25/2018 1:56 PM) [facility] DICTATED and SIGNED BY: MARK EDMONDS MD DATE: 12/25/[address] [address] IMAGING REPORT Signed PATIENT: KIMBER BALDWIN ACCOUNT: [id number] : 1980 LOCATION: ER AGE: 38 SEX: F EXAM STATUS: REG ER ORD. PHYSICIAN: MAYLIN SULLIVAN MD REASON: dizziness PROCEDURE: CT HEAD WO CONTRAST CT HEAD WITHOUT CONTRAST 12/25/2018 1:30 PM Indication: Dizziness Comparison: None Procedure: Multidetector CT imaging of the head was performed without the administration of contrast. Findings: There is no evidence of acute intracranial hemorrhage. There is no evidence of acute territorial infarction. Please note that CT is limited for evaluation of acute ischemia. No mass effect or midline shift is identified . The ventricles and basilar cisterns have an appropriate appearance. No abnormal extra-axial fluid collections are seen. No acute osseous changes are identified. Mucosal thickening and possible mucous retention cyst noted in the left maxillary sinus. There is mucosal thickening within the ethmoid air cells and right maxillary sinus with possible focal secretions noted. Acute on chronic sinusitis not excluded. Impression: 1.No evidence of acute intracranial abnormality 2. Probable chronic sinus disease. A component of acute on chronic sinusitis not excluded CT DOSING PQRS STATEMENT: One or more of the following individualized dose reduction techniques were utilized for this examination: 1. Automated exposure control 2. Adjustment of the mA and/or kV according to patient size 3. Use of iterative reconstruction technique Electronically signed by: John Zelaya MD (12/25/2018 2:51 PM) [facility] DICTATED and SIGNED BY: JOHN ZELAYA MD DATE: 12/25/18 8317 Course & Med Decision Making Course & Med Decision Making Pertinent Labs and Imaging studies reviewed. (See chart for details) Evaluation of patient in ER showed 38-year-old female patient with rapid obesity presented with complaining of episodes of dizziness for 2 weeks and elevation of blood pressure without history of hypertension. Patient was anxious and tearful in ER without having suicidal and homicidal ideation. Patient had blood pressure 160s at arrival to ER that gradually decreased to 135/80 without any treatment. Patient ate a few hours before having gallbladder ultrasound and it was questionable for contacted gallbladder or cholelithiasis. Patient was informed about test results and needs to have a gallbladder ultrasound in NPO condition. Patient had a very mild elevation of d-dimer without concern for PE. Patient felt better after treatment in ER was advised to follow-up with her [facility] physician regarding anxiety and other medical problem. Dragon Disclaimer Dragon Disclaimer This electronic medical record was generated, in whole or in part, using a voice recognition dictation system. Departure Departure Impression: Primary Impression: Anxiety about health Additional Impressions: Elevated blood pressure reading without diagnosis of hypertension Dizziness Abnormal gallbladder ultrasound Morbidly obese Marijuana use Disposition: HOME, SELF-CARE (at 1537) Condition: IMPROVED Referrals: NO PCP (PCP) Patient Instructions: Anxiety and Panic Attacks, Dizziness, Form - Blood Pressure Record Sheet, How to Take Your Blood Pressure, [id number], Managing Your High Blood Pressure Additional Instructions: Drink plenty of liquids Follow-up with your primary care physician in 3-5 days Return to ER if not getting better Follow-up with your primary care physician for evaluation of gallbladder Scripts Hydroxyzine Hcl (HYDROXYZINE HCL) 25 Mg Tablet 1 TAB PO QHS PRN for ANXIETY, #10 TAB Prov: MAYLIN SULLIVAN MD 12/25/18 Problem Qualifiers MAYLIN SULLIVAN MD Dec 25, 2018 13:41
[2018-12-25 13:48] LABS: BASO # 0.1 x10^3/uL (0.0-0.2); BASO % 1 % (0-3); EOS # 0.1 x10^3/uL (0.0-0.7); EOS % 1 % (0-3); HEMATOCRIT 40.1 % (36.0-47.0); HEMOGLOBIN 13.4 g/dL (12.0-15.5); LYMPH # 1.9 x10^3/uL (1.0-4.8); LYMPH % 27 % (24-48); MEAN CORPUSCULAR HEMOGLOBIN 29 pg (25-35); MEAN CORPUSCULAR HGB CONC 34 g/dL (31-37); MEAN CORPUSCULAR VOLUME 85 fL (79-100); MONO # 0.6 x10^3/uL (0.0-1.1); MONO % 8 % (0-9); NEUT # 4.4 x10^3/uL (1.8-7.7); NEUT % 63 % (31-73); PLATELET COUNT 248 x10^3/uL (140-400); RED BLOOD COUNT 4.71 x10^6/uL (3.50-5.40); RED CELL DISTRIBUTION WIDTH 14.2 % (11.5-14.5)
--- NOTE | 2018-12-25 13:58 | RAD ---
EXAM: CHEST 1 VIEW History: Dizziness COMPARISON: 06/03/2018 TECHNIQUE: Single portable radiograph of the chest FINDINGS: The cardiac silhouette is unremarkable. The lungs are clear bilaterally. The costophrenic sulci are clear and well demarcated. . IMPRESSION: No radiographic evidence of an acute cardiopulmonary process. Electronically signed by: Mark Edmonds MD (12/25/2018 1:56 PM) [place] [id number]
[2018-12-25 14:03] LABS: PROTHROMBIN TIME PATIENT 12.9 SEC (11.7-14.0)
[2018-12-25 14:04] LABS: CALCIUM 8.8 mg/dL (8.5-10.1); CREATININE 0.9 mg/dL (0.6-1.0); GFR 69.3; POTASSIUM 4.1 mmol/L (3.5-5.1)
[2018-12-25 14:09] LABS: ALBUMIN 2.9 g/dL (3.4-5.0); ALBUMIN/GLOBULIN RATIO 0.7 (1.0-1.7); MAGNESIUM 1.9 mg/dL (1.8-2.4); TOTAL BILIRUBIN 0.2 mg/dL (0.2-1.0); TOTAL PROTEIN 6.8 g/dL (6.4-8.2)
[2018-12-25 14:10] LABS: D-DIMER 0.66 ug/mlFEU (0.00-0.50)
[2018-12-25 14:11] LABS: BILIRUBIN,URINE NEGATIVE (NEG); CLARITY,URINE CLEAR; COLOR,URINE YELLOW; NITRITE,URINE NEGATIVE (NEG); PROTEIN,URINE NEGATIVE (NEG-TRACE); UROBILINOGEN,URINE 0.2 mg/dL (0.2 mg/dL)
--- NOTE | 2018-12-25 14:15 | EKG ---
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
[2018-12-25 14:18] LABS: AMPHETAMINE/METHAMPHETAMINE NEG (NEG); BARBITURATES NEG (NEG); BENZODIAZEPINES NEG (NEG); CANNABINOIDS POS (NEG); COCAINE NEG (NEG); METHADONE NEG (NEG); OPIATES NEG (NEG); PHENCYCLIDINE NEG (NEG)
[2018-12-25 14:25] LABS: BACTERIA,URINE FEW /HPF (0-FEW); WBC,URINE RARE /HPF (0-4)
[2018-12-25 14:26] LABS: SQUAMOUS EPITHELIAL CELL,UR FEW /LPF
--- NOTE | 2018-12-25 14:45 | RAD ---
ABDOMEN LTD History: Nausea. Comparison: None. Technique: Transabdominal ultrasound images are obtained of the right upper quadrant. Findings: Visualized pancreas is not well seen due to overlying bowel gas. Liver is increased in echogenicity. Right hepatic lobe measures 18 cm. Portal flow is hepatopedal. Gallbladder not well seen due to overlying bowel gas and patient body habitus. Difficult evaluation of the gallbladder may be due to contracted state or wall echo shadow sign. Common bile duct caliber is normal measuring 8.9 mm in diameter. The right kidney measures 10.1 x 6.5 x 5.3 cm in length and is without evidence of obstruction or stone. IVC is not well seen due to overlying bowel gas. IMPRESSION: 1. Evaluation of the gallbladder is degraded and findings may relate to wall echo shadow sign due to cholelithiasis versus contracted gallbladder. Further evaluation with MRI/MRCP or HIDA scan can better evaluate. 2. Mildly dilated common bile duct. 3. Hepatomegaly with steatosis. Electronically signed by: Jas Ibrahim DO (12/25/2018 2:42 PM) [facility]
--- NOTE | 2018-12-25 14:54 | RAD ---
CT HEAD WITHOUT CONTRAST 12/25/2018 1:30 PM Indication: Dizziness Comparison: None Procedure: Multidetector CT imaging of the head was performed without the administration of contrast. Findings: There is no evidence of acute intracranial hemorrhage. There is no evidence of acute territorial infarction. Please note that CT is limited for evaluation of acute ischemia. No mass effect or midline shift is identified . The ventricles and basilar cisterns have an appropriate appearance. No abnormal extra-axial fluid collections are seen. No acute osseous changes are identified. Mucosal thickening and possible mucous retention cyst noted in the left maxillary sinus. There is mucosal thickening within the ethmoid air cells and right maxillary sinus with possible focal secretions noted. Acute on chronic sinusitis not excluded. Impression: 1.No evidence of acute intracranial abnormality 2. Probable chronic sinus disease. A component of acute on chronic sinusitis not excluded CT DOSING PQRS STATEMENT: One or more of the following individualized dose reduction techniques were utilized for this examination: 1. Automated exposure control 2. Adjustment of the mA and/or kV according to patient size 3. Use of iterative reconstruction technique Electronically signed by: John Zelaya MD (12/25/2018 2:51 PM) [id number]
[2018-12-25] MEDS ORDERED: HYDR25TA PO (15:41)
[2018-12-25 15:43] VITALS: BP 129/69
== END 2018-12-25 15:46 | disposition home or self-care (01) ==
LOC: ER 11:56
DX: F12.10 Cannabis abuse, uncomplicated (principal); R42 Dizziness and giddiness; R03.0 Elevated blood-pressure reading, without diagnosis of hypertension; F41.9 Anxiety disorder, unspecified; E66.01 Morbid (severe) obesity due to excess calories; Z68.44 Body mass index [BMI] 60.0-69.9, adult; R93.2 Abnormal findings on diagnostic imaging of liver and biliary tract; R51 Headache; R11.0 Nausea; J45.909 Unspecified asthma, uncomplicated; Z88.8 Allergy status to other drugs, medicaments and biological substances
CPT/HCPCS: 36415; 70450; 71045; 76705; 80053; 80307; 81001; 81025; 82550; 82962; 83690; 83735; 83880; 84484; 85025; 85379; 85610; 93005; 99281; 99285

== ENCOUNTER 2019-06-20 01:06 | Emergency (ER) | payer MEDICAID ==
[~2019-06-20] VITALS: Ht 165.1 cm; Wt 195.0 kg
[~2019-06-20 01:06] MED LIST changes: +HYDR25TA PO
[2019-06-20 01:30] VITALS: BP 156/90
--- NOTE | 2019-06-20 02:39 | PHYS DOC ---
Past Medical History Past Medical History: Asthma, Other Additional Past Medical Histor: BACK PAIN, MORBID OBESITY Past Surgical History: Other Additional Past Surgical Histo: BLOOD PATCH Smoking Status: Never Smoker Alcohol Use: Rarely Drug Use: None Adult General Chief Complaint Chief Complaint: ANKLE PROBLEM HPI HPI Patient is a 38 year old female presents with complaint of right foot and heel pain that has been present for the last few days. Patient states that pain is progressively getting worse. She also indicates that she has swelling in her lower leg and is concerned because she has family history of blood clots. Patient states the pain is worsened with weightbearing and rates pain as moderate. Patient also indicates that she has had a cough with upper respiratory infection for over a week and has had difficulty sleeping at night due to all of the coughing.[] Review of Systems Review of Systems Constitutional: Denies fever or chills [] Respiratory: Denies cough or shortness of breath [] Cardiovascular: No additional information not addressed in HPI [] Musculoskeletal: Positive right foot and heel pain [] Integument: Denies rash or skin lesions [] Neurologic: Denies headache, focal weakness or sensory changes [] Current Medications Current Medications Current Medications Medications (Trade) Dose Ordered Sig/Brian Start Time Stop Time Status Last Admin Dose Admin Dexamethasone Sodium Phosphate (Decadron) 20 mg 1X ONCE 06/20/19 03:30 06/20/19 03:31 DC 06/20/19 03:32 20 MG Ketorolac Tromethamine (Toradol Im) 60 mg 1X ONCE 06/20/19 03:30 06/20/19 03:31 DC 06/20/19 03:31 60 MG Allergies Allergies Allergies Coded Allergies Type Severity Reaction Last Updated Verified fluconazole Allergy Severe Anaphylaxis 11/08/13 No Physical Exam Physical Exam Constitutional: Well developed, well nourished, no acute distress, non-toxic appearance. [] Cardiovascular: Regular rate and rhythm[] Lungs & Thorax: Fine upper or rhonchi are noted to auscultation [] Skin: Warm, dry, no erythema, no rash. [] Extremities: Right foot demonstrates tenderness to palpation around the calcaneus and over the plantar fascia. Lower extremities demonstrate 1-2+ pitting edema. [] Neurologic: Alert and oriented X 3, no focal deficits noted. [] Current Patient Data Vital Signs Vital Signs Date Time Temp Pulse Resp B/P (MAP) Pulse Ox O2 Delivery O2 Flow Rate FiO2 2/29/20 01:30 97.8 86 14 156/90 (112) 97 Room Air 97.8 Lab Values Laboratory Tests Test 06/20/19 02:30 D-Dimer (Lillian) 1.12 ug/mlFEU (0.00-0.50) H C-Reactive Protein, Quantitative 19.1 mg/L (0-3.3) H EKG EKG [] Radiology/Procedures Radiology/Procedures [] Course & Med Decision Making Course & Med Decision Making Pertinent Labs and Imaging studies reviewed. (See chart for details) [] Dragon Disclaimer Dragon Disclaimer This electronic medical record was generated, in whole or in part, using a voice recognition dictation system. Departure Departure Impression: Primary Impression: Plantar fasciitis of right foot Additional Impression: Calcaneal bursitis (heel) Disposition: 01 HOME, SELF-CARE Condition: STABLE Referrals: NO PCP (PCP) Patient Instructions: Bursitis, Plantar Fasciitis Scripts Methylprednisolone (MEDROL) 4 Mg Tab.ds.pk 1 PKG PO UD, #1 PKG Prov: MARCO HAMILTON Jr. DO 06/20/19 Diclofenac Sodium (DICLOFENAC SODIUM) 50 Mg Tablet.dr 1 TAB PO BID PRN for PAIN, #20 TAB Prov: MARCO HAMILTON Jr. DO 06/20/19 Problem Qualifiers Additional Impression: Calcaneal bursitis (heel) Laterality: right Qualified Codes: M77.51 - Other enthesopathy of right foot and ankle MARCO HAMILTON Jr. DO Jun 20, 2019 02:39
--- NOTE | 2019-06-20 03:08 | RAD ---
3 views the right foot dated 06/20/2019. Comparison made to 05/16/2017. Clinical data indication: Foot pain. FINDINGS: 3 views of the right foot show normal bony alignment. No displaced fracture. No acute osseous or articular abnormality. No periostitis or bone destruction. Small calcaneal spur. IMPRESSION: No acute findings. Electronically signed by: Deshawn Mendieta MD (06/20/2019 3:05 AM) [id number]
[2019-06-20] MEDS ORDERED: KETOROLAC 60 MG/2 ML VIAL. IM ONE (03:30)
[2019-06-20] MEDS ORDERED: DEXAMETHASONE SOD PHOS 20 MG/5 ML VIAL. IM ONE (03:30)
--- NOTE | 2019-06-20 04:12 | RAD ---
Right lower extremity venous Doppler dated 06/20/2019. No comparison available. CLINICAL INDICATION: Ankle pain and elevated d-dimer for 2 days. FINDINGS: Grayscale, color-flow and spectral waveform analysis performed to include the deep venous system of the right lower extremity. There is normal compressibility, phasicity and augmentation of flow throughout. No filling defects are seen. IMPRESSION: No evidence of right lower extremity deep vein thrombosis. Electronically signed by: Deshawn Mendieta MD (06/20/2019 4:08 AM) [id number]
[2019-06-20] MEDS ORDERED: METH4TAB2 PO (04:13)
[2019-06-20] MEDS ORDERED: DICL50TA4 PO (04:13)
== END 2019-06-20 04:28 | disposition home or self-care (01) ==
LOC: ER 01:06
DX: M72.2 Plantar fascial fibromatosis (principal); M77.51 Other enthesopathy of right foot and ankle; J45.909 Unspecified asthma, uncomplicated; Z88.8 Allergy status to other drugs, medicaments and biological substances
CPT/HCPCS: 36415; 73630; 85379; 86140; 93971; 96372; 99285; J1100; J1885